=== PATIENT | female | born 1950 | race Caucasian/White ===

== ENCOUNTER 2023-08-19 16:09 | Inpatient (IN) | payer OTHER, SELFPAY ==
[2023-08-19 12:58] VITALS: BP 170/110
[2023-08-19] MEDS: ROXICODONE 5 MG PO (14:08)
--- NOTE | 2023-08-19 14:58 | ED.GENMED ---
History of Present Illness
General
Chief Complaint: Fall
Source: patient
Time Seen by Provider: 08/19/23 13:44
Travel History
Have you had any contact with someone who has COVID-19?: No
Do you have any symptoms of coronavirus? Fever > 100 degrees, chills, cough, shortness of breath, sore throat, loss of taste or smell, muscle aches, or headache?: No
History of Present Illness
History of Present Illness:
72-year-old female with past medical history of hypertension, hyperlipidemia, diabetes insipidus presenting to the emergency department via EMS after she was going to the local [facility] when she was walking into the store when she says her left knee gave
out from underneath her and caused her to fall to the ground, unable to get up so EMS was contacted to bring the patient to the ER. Patient states from her knee down to her lower leg she is having pain with inability to move. She denies any other
extremity related injury, head injury, neck pain or any other concerns. She denies use of anticoagulants. Patient lives on her own in an apartment complex stating there is about 3 stairs at her complex. She notes she was not given anything for
pain and route. She takes daily gabapentin for peripheral neuropathy.
Past History
Past History
ED Past Medical History: Asthma, HTN, Hypercholesterolemia and Other (IBS; Peripheral Neuropathy)
ED Past Surgical History: Cholecystectomy and Orthopedic (B/L Feet Surgery; Right Lumpectomy, Right Wrist Surgery)
Social History
Tobacco: Non-smoker
Alcohol: None
Drug: None
Personal: Single
Living: alone
Employment: Employed
Review of Systems
Review of Systems
All Other Systems: ROS reviewed and negative except as documented in HPI and ROS
Phy Exam
Physical Exam
Physical Exam:
GENERAL: Alert , appears uncomfortable, overweight
head: Normocephalic atraumatic
EYE: clear conjunctiva
NECK: Supple
ENT: o/p clr, mmm.
CARDIAC: Regular rate and rhythm .
LUNGS: Clear breath sounds bilaterally, no acute respiratory distress, no wheezes/rales/rhonchi
NEUROLOGICAL: Alert and oriented
SKIN: Warm and dry, skin intact.
MUSCULOSKELETAL: Left lower extremity: Diffusely tender from the distal femur extending over the patella and into the tib-fib region. Patient is also noting tenderness over the entirety of the ankle but stating there does not appear to be any areas
of increased pain with palpation. I am unable to assess the range of motion of the left leg due to patient's pain. There is an easily palpable pedal and tibial pulse. Cap refills less than 2 seconds and sensation is grossly intact to light touch.
PSYCH: Normal and appropriate interaction.
Scores
Heart Failure Risk
Heart Failure Risk Score: Not Applicable
Heart Score for Chest Pain Patients
STEMI patient?: Not applicable
Withdrawal Assessment of Alcohol
Withdrawal Assessment Completed?: Not applicable
Course
Orders/Labs/Results
Orders:
Orders
08/19/23 13:49
Oxycodone [Roxicodone] 5 mg PO NOW STA
CR Ankle - Left Min 3 Views Urgent
Comment:
Reason For Exam: fall, pain
CR Knee - Left 4 Or More View* Urgent
Comment:
Reason For Exam: fall, pain
CR Leg Tibia/fibula Left 2 Vw Urgent
Comment:
Reason For Exam: fall, pain
08/19/23 14:53
IV Insert/Care/Rem.- Treatment PRN
08/19/23 14:54
CR Femur - Left Min 2 Vw Urgent
Comment:
Reason For Exam: distal femur fracture
08/19/23 14:59
Lower Ext Left wo Contrast CT [CT Lower Ext W/o Iv Cont Lt] Urgent
Comment:
Reason For Exam: distal femur fx
Basic Metabolic Panel Urgent
PTT Urgent
Prothrombin Time Urgent
08/19/23 15:00
Type+Screen Urgent
Complete Blood Count/With Diff Urgent
08/19/23 15:02
HYDROmorphone [Dilaudid] 0.5 mg IV NOW STA
08/19/23 15:40
Admit/Transfer Patient As Directed
Co-Sign Provider:
Level of Care: Inpatient admission
Assign to:: Medical/Surgical
Physician / Group: hosp
Diagnosis: Femur fracture
Reason for Hospitalization: Distal femur fracture
Expected length of stay greater than two midnights?: Yes
ELOS- Estimated Length of Stay in days: 3
I certify the patient meets the requirements for IP care: Yes
08/19/23 15:42
Code Status As Directed
Resuscitation Status: Full Code
08/19/23 15:50
Dextrose 50%-Water [Dextrose 50% Syringe] 12.5 grams IV [id number] PRN
Glucagon [GlucaGen] 1 mg IM PRN PRN
08/19/23 15:51
Urine Creatinine Routine
Urine Osmolality Random [Osmolality, Random Urine] Routine
Urine Sodium Routine
Bedside Glucose Monitoring As Directed
Frequency: AC&HS
Comment: Change to q6h if pt on TPN, tube feeding or not eating
08/19/23 16:30
Insulin Aspart Corrective Low [Novolog Flexpen-Low Resistance] See Protocol SC AC
08/20/23 06:00
Glycohemoglobin (HgbA1c) IN AM
Abnormal Lab Results
08/19/23 08/19/23
14:59 15:00
WBC 15.3 H 10^3/uL
(4.8-10.8)
RBC 3.96 L 10^6/uL
(4.20-5.40)
Hgb 11.6 L g/dL
(12.0-16.0)
Hct 33.0 L %
(37.0-47.0)
Abs Immat Gran (auto) 0.1 H 10^3/uL
(0-0.05)
Absolute Neuts (auto) 12.4 H 10^3/uL
(1.4-6.5)
Absolute Monos (auto) 0.8 H 10^3/uL
(0.1-0.6)
Immature Gran % 0.9 H %
(0-0.5)
Neutrophils % 80.8 H %
(42.2-75.2)
Lymphocytes % 12.4 L %
(20.5-51.1)
Sodium 126 L mmol/L
(135-145)
Chloride 93 L mmol/L
(98-107)
Creatinine 0.5 L mg/dL
(0.6-1.0)
Glucose 175 H mg/dl
(70-99)
08/19/23 15:00
08/19/23 14:59
Vital Signs
Initial and Last Documented VS:
Initial Vital Signs
Temp Pulse Resp BP Pulse Ox
97.2 F 61 16 170/110 96
08/19/23 12:58 08/19/23 12:58 08/19/23 12:58 08/19/23 12:58 08/19/23 12:58
Last Documented Vital Signs
Temp Pulse Resp BP Pulse Ox
97.2 F 61 16 170/110 96
08/19/23 12:58 08/19/23 12:58 08/19/23 12:58 08/19/23 12:58 08/19/23 12:58
MDM/Problems Addressed
Differential Diagnosis Includes:
Femur fracture, meniscal injury, ligamentous injury, tib-fib fracture, ankle fracture
MDM/Problems Addressed:
72-year-old female presenting the emergency department for evaluation of a left lower extremity injury following an accidental fall. Patient is complaining of diffuse pain from the distal femur extending distally into the left lower leg with
inability to range of motion. Will order x-rays. P.o. oxycodone ordered for initial pain relief. Reassessment following
*Radiology
Radiology exam reviewed: preliminary read by ED provider (Distal femur fracture)
*Pulse Oximetry
Patient hypoxic: no
*Critical Care Note
Total Time (30-74mins, 75-104mins- exclusive of procedures): Not Applicable
Patient Management
Discussion with other providers: Hospitalist and Engineering Aid
Escalation/DeEscalation of care consider admission/obs:
X-rays of the knee show a distal femur fracture. I added on x-ray of the entirety of the femur as well as a CT scan at the request of orthopedic surgeon, Dr. Bell. I also ordered the patient IV Dilaudid for further pain control. Hospitalist
team is aware and accepts patient for continued evaluation and treatment.
ED Attending Note
-
Portions of this chart may have been created with voice recognition software.� Occasional wrong word or��sound alike� substitutions may have occurred due to the inherent limitations of voice recognition software.
Discharge Plan
Departure
Patient Disposition: Admit
Date of Disposition: 08/19/23
Time of Disposition: 14:58
Presentation/result/management discussed w/ accepting MD/DO: Hospitalist
Discharge Problem:
Closed fracture of distal end of left femur
Interventions
Interventions:
*Risk Screen - Suicide Last Done: 08/19/23 13:42
*General Assessment Last Done: 08/19/23 13:42
*Neglect/Abuse Screening Last Done: 08/19/23 13:42
*ED COVID-19 Vaccine History Last Done: 08/19/23 12:58
ED-Musculoskeletal Assessment Last Done: 08/19/23 13:42
ED- Neurological Assessment Last Done: 08/19/23 13:42
ED-Skin Assessment Last Done: 08/19/23 13:42
[2023-08-19 15:14] LABS: % Basophils 0.5 % (0-2); % Eosinophils 0.5 % (0-6); % Immature Granulocytes 0.9 % (0-0.5); % Lymphocytes 12.4 % (20.5-51.1); % Monocytes 4.9 % (1.7-9.3); % Neutrophils 80.8 % (42.2-75.2); Absolute Basophils 0.1 10^3/uL (0-0.2); Absolute Eosinophils 0.1 10^3/uL (0-0.7); Absolute Immature Granulocytes 0.1 10^3/uL (0-0.05); Absolute Lymphocytes 1.9 10^3/uL (1.2-3.4); Absolute Monocytes 0.8 10^3/uL (0.1-0.6); Absolute Neutrophils 12.4 10^3/uL (1.4-6.5); Hemoglobin 11.6 g/dL (12.0-16.0); Mean Corp Hgb Conc. 35.2 g/dL (33.0-37.0); Mean Corpuscular Hgb 29.3 pg (27.0-31.0); Mean Corpuscular Volume 83.3 fL (81.0-99.0); Mean Platelet Volume 9.2 fL (7.4-10.4); Nucleated Red Blood Cells % 0 %; Platelet Count 274 10^3/uL (130-400); Red Blood Cell Count 3.96 10^6/uL (4.20-5.40); Red Cell Dist. Width 13.7 % (11.5-14.5); White Blood Cell Count 15.3 10^3/uL (4.8-10.8)
--- NOTE | 2023-08-19 15:21 | HPS.HSE ---
Addendum entered and electronically signed by Walter Huff MD 08/19/23 15:55:
Finally able to get the complete chemistries back in patient's serum sodium is 126 and corrected for hyperglycemia to 128 prior to clearing for proposed operative intervention would like to obtain repeat sodium in a.m. obtain urine sodium and
osmolality patient's hyponatremia seems to be on a chronic basis looking at the medical record however
Original Note:
Family Physician
-
Family Physician: Davonte Wiggins
Chief Complaint
-
Unable to get up after fall at [facility]
History of Present Illness
72-year-old female with a known medical history that includes type type 2 diabetes mellitus with history of neuropathy along with hypertension and asthma. Presents to the ED after EMS personnel called to a local [facility] pharmacy where the patient had
fallen in the entrance way against some carts stating that she accidentally fell she did not have any dizziness chest pain shortness of breath leading to the event she was unable to obtain upright status afterwards due to significant pain and is now
found to have a distal left femur fracture necessitating admission for operative intervention. Other pertinent medical history she has more recently been also been followed by the endocrinology service for an elevated parathyroid hormone level that
was documented last year after initially noted to have hypercalcemia she is presently not being adequately treated for that. She also has a history of hyponatremia her present laboratory profiling is still pending. Patient was actually scheduled
fo pending cataract surgery on 30 August and had preadmission testing this past week which included an EKG but that was reviewed here no lab work was done
Medical History
Past Medical History
Past Medical History: Reports Asthma, GERD, HTN and NIDDM
Additional Past Medical History:
Hyperparathyroidism unclear whether primary or secondary/peripheral neuropathy unclear whether related to diabetes
Past Surgical History: Reports Cholecystectomy and Gynocological
Additional Past Surgical History:
Hysterectomy/lumpectomy
Social History
Tobacco: Non-smoker
Alcohol: None
Drug: None
Personal: Single
Living: Alone
Employment: Employed
Family History
Family History: CAD
Allergies / Home Medications
Allergies reflects when Allergies were last updated in [facility].
Home Medications with original date entered in [facility]
Allergy/Medication List:
Allergies
Allergy/AdvReac Type Severity Reaction Status Date / Time
SAMEER Inhibitors Allergy Unknown Verified 08/19/23 13:01
amoxicillin Allergy Unknown Verified 08/19/23 13:01
cefdinir Allergy Unknown Verified 08/19/23 13:01
neomycin Allergy Unknown Verified 08/19/23 13:01
Home Medications
Fexofenadine Hcl 180 mg PO DAILY 10/22/21
Montelukast Sodium 10 mg PO DAILY 10/22/21
acetaminophen 650 mg tablet,extended release 650 mg PO Q8HPRN PRN pain 10/22/21
albuterol sulfate 90 mcg/actuation aerosol inhaler 2 puff inhalation R Q4HPRN PRN SOB 10/22/21
alprazolam 0.5 mg tablet 0.5 mg PO TID 10/22/21
amlodipine 5 mg tablet 5 mg PO BID 10/22/21
atenolol 25 mg tablet 25 mg PO BID 10/22/21
budesonide-formoterol HFA 160 mcg-4.5 mcg/actuation aerosol inhaler (Symbicort) 2 puff inhalation R BID 10/22/21
cholecalciferol (vitamin D3) 50 mcg (2,000 unit) tablet 2,000 unit PO DAILY 10/22/21
dicyclomine 10 mg capsule 10 mg PO TID 10/22/21
gabapentin 100 mg capsule 200 mg PO TID 10/22/21
meclizine 25 mg tablet 25 mg PO TID PRN Vertigo 10/22/21
metformin 500 mg tablet 500 mg PO BID 10/22/21
omega 5-ocd-hyo-fish oil 300 mg-1,000 mg capsule (Fish Oil) 1 ea PO DAILY 10/22/21
omeprazole 20 mg capsule,delayed release 20 mg PO DAILY 10/22/21
triamcinolone acetonide 55 mcg nasal spray aerosol (Nasacort AQ) 16.5 gm NS DIRECTED 10/22/21
vitamin E 268 mg (400 unit) capsule 400 unit PO DAILY 10/22/21
valsartan 160 mg-hydrochlorothiazide 12.5 mg tablet 1 tab PO BID 08/19/23
Review of Systems
-
History Source: Patient and Transfer Record
A 12 point ROS was completed and negative except as noted: Yes
Constitutional: Reports See HPI
EENT: Reports See HPI
Respiratory: Reports See HPI
Cardiac: Reports See HPI
Abdomen/GI: Reports See HPI
: Reports See HPI
Musculoskeletal: Reports Joint Pain, Joint Swelling and Muscle Pain (Right leg from fall and fracture)
Neurological: Reports Weakness and Numbness
Physical Exam
Vital Signs
Vital Signs
Temp Pulse Resp BP Pulse Ox
97.2 F 61 16 170/110 96
08/19/23 12:58 08/19/23 12:58 08/19/23 12:58 08/19/23 12:58 08/19/23 12:58
Physical Exam
General: Morbidly Obese
HEENT: NormoCephalic
Respiratory: Clear
Cardiac: S1/S2, Regular Rhythm and Irregular Rhythm
GI: Soft
Musculoskeletal: Clubbing, Edema, Left Lower Extremity and Other
Skin: Warm
Neuro: Awake, Alert, Oriented, AO x 3, No Motor Deficits, Nonfocal/grossly intact and Cranial Nerves Intact
Psych: Anxious
Laboratory Results
-
08/19/23 15:00
Data Reviewed
-
Critical Care Time (in minutes): 56
CT Scan: Report Reviewed by me (Still pending read)
Lab Data: Labs Reviewed by me (Chemistries pending)
Impression/Plan
-
IMPRESSION:
72-year-old female with a known medical history that includes type type 2 diabetes mellitus with history of neuropathy along with hypertension and asthma. Presents to the ED after EMS personnel called to a local [facility] pharmacy where the patient had
fallen in the entrance way against some carts stating that she accidentally fell she did not have any dizziness chest pain shortness of breath leading to the event she was unable to obtain upright status afterwards due to significant pain and is now
found to have a distal left femur fracture necessitating admission for operative intervention. Other pertinent medical history she has more recently been also been followed by the endocrinology service for an elevated parathyroid hormone level that
was documented last year after initially noted to have hypercalcemia she is presently not being adequately treated for that. She also has a history of hyponatremia her present laboratory profiling is still pending.
Distal left femur fracture with displacement
-Still unofficial read on x-ray/CT scan pending
-Will need operative intervention
-Keep n.p.o. after midnight
-Narcotic analgesia
-Labs still pending but based on clinical presentation and prior history patient with on revised cardiac risk index has 0.9% low risk for CT or V-fib
-Reviewed this weeks preoperative testing for cataract surgery EKG which was
within normal limits
-Repeat EKG here
-Consult with [facility] orthopedics for presumptive OR intervention tomorrow
Essential hypertension by history
-Continue present management with ARB and hydrochlorothiazide pending lab results again
-Continue amlodipine
Asthma history
-Continue Symbicort
-As needed albuterol
History of hyperparathyroidism
-Prior history of elevated parathyroid hormone and hypercalcemia
-Follows with endocrinology no active treatment presently
Gastroesophageal reflux disease
-Continue on PPI
Type 2 diabetes mellitus
-Hold metformin
-Sliding scale coverage /check glycosylated hemoglobin
Morbid obesity
-Impacts all aspects of care
[2023-08-19 15:25] LABS: INR 1.07
[2023-08-19 15:26] LABS: APTT 26.4 Sec (23.4-35.0)
[2023-08-19 15:35] LABS: Blood Urea Nitrogen 16 mg/dl (7-17); Calcium 9.9 mg/dl (8.4-10.2); Carbon Dioxide 26 mmol/L (22-30); Chloride 93 mmol/L (98-107); Glucose 175 mg/dl (70-99); Potassium 4.4 mmol/L (3.5-5.1); Sodium 126 mmol/L (135-145); eGFR > 60.00
[2023-08-19] MEDS: DILAUDID 0.5 MG IV ×4 (15:37→22:18)
[2023-08-19 17:14] VITALS: BP 147/88
--- NOTE | 2023-08-19 17:30 | PTCARENOTE ---
Pt arrived to 2S on stretcher, slide assist to bed via NSG staff. IVF initiated. Purewick applied. LLE with + edema, pulses palpable b/l. Bed locked and in the lowest position, safety maintained. Oriented to room and call spencer, daughter at bedside.
[2023-08-19 17:31] VITALS: BP 176/69
[2023-08-19 17:47] VITALS: BMI 44.5
[2023-08-19] MEDS: NSS 1000 IV (17:56)
[2023-08-19 18:03] LABS: Glucose - Point of Care 216 mg/dl (70-99)
[2023-08-19] MEDS: NEURONTIN 200 MG PO ×2 (18:23→22:15)
[2023-08-19] MEDS: ORETIC 12.5 MG PO (18:25)
[2023-08-19] MEDS: DIOVAN 160 MG PO (18:25)
[2023-08-19] MEDS: NORVASC 5 MG PO (18:26)
[2023-08-19] MEDS: TENORMIN 12.5 MG PO (18:26)
[2023-08-19] MEDS: NOVOLOG FLEXPEN-LOW RESISTANCE 2 UNITS SC (18:26)
[2023-08-19 18:33] LABS: Osmolality Urine 533 mOsm/kg (300-900)
[2023-08-19 18:43] LABS: Urine Sodium 140 mmol/L (30-90)
[2023-08-19] MEDS: SYMBICORT 160/4.5 MCG INHALER 2 PUFF INH (19:37)
[2023-08-19] MEDS: XANAX 0.25 MG PO (20:13)
[2023-08-19] MEDS: TYLENOL 650 MG PO (20:35)
[2023-08-19 21:39] LABS: Glucose - Point of Care 204 mg/dl (70-99)
[2023-08-19] MEDS: SINGULAIR 10 MG PO (22:16)
[2023-08-19 22:30] VITALS: BP 151/58
[2023-08-20] VITALS (19 sets, daily range): BP systolic 131–202; BP diastolic 55–107
[2023-08-20] MEDS: TYLENOL 650 MG PO ×4 (01:57→20:56)
[2023-08-20] MEDS: DILAUDID 0.5 MG IV ×5 (02:15→23:05)
--- NOTE | 2023-08-20 05:36 | PTCARENOTE ---
Difficulty managing pain overnight with current PRN medications. Around 1999 assessment, pt. states IV Dilaudid 'barely lasts 2 hours' when asked about pain s/p 1751 0.5mg IV Dilaudid administration. House SIGNING TEACHER ordered stat dose of Dilaudid 0.5mg
@2034 and pt. was able to get some rest for a few hours. Later on pt. refusing turns as movement brought her severe pain even with consistent Q4 0.5mg Dilaudid IV and stated the pain was barely tolerable if she just laid still. At 0500 pt. states
pain is starting to return at a 6/10, asking for more pain medication, and is refusing linen change and CHG wipes until she can get pain medication. Dilaudid 0.5mg IV able to be given around 0615, will attempt after administration.
[2023-08-20] MEDS: NSS 1000 IV ×3 (05:56→21:13)
[2023-08-20 06:07] LABS: Hematocrit 30.5 % (37.0-47.0); Hemoglobin 10.5 g/dL (12.0-16.0); Mean Corp Hgb Conc. 34.4 g/dL (33.0-37.0); Mean Corpuscular Hgb 28.7 pg (27.0-31.0); Mean Corpuscular Volume 83.3 fL (81.0-99.0); Mean Platelet Volume 9.6 fL (7.4-10.4); Platelet Count 251 10^3/uL (130-400); Red Blood Cell Count 3.66 10^6/uL (4.20-5.40); Red Cell Dist. Width 13.8 % (11.5-14.5); White Blood Cell Count 10.1 10^3/uL (4.8-10.8)
[2023-08-20 06:26] LABS: Blood Urea Nitrogen 11 mg/dl (7-17); Calcium 9.3 mg/dl (8.4-10.2); Carbon Dioxide 31 mmol/L (22-30); Chloride 94 mmol/L (98-107); Estimated Creatinine Clearance 98 ml/min; Glucose 146 mg/dl (70-99); Potassium 3.5 mmol/L (3.5-5.1); Sodium 127 mmol/L (135-145); eGFR > 60.00
[2023-08-20] MEDS: SYMBICORT 160/4.5 MCG INHALER 2 PUFF INH (07:28)
[2023-08-20 07:32] LABS: Glucose - Point of Care 190 mg/dl (70-99)
[2023-08-20] MEDS: VITAMIN E 400 UNITS PO (07:57)
[2023-08-20] MEDS: NEURONTIN 200 MG PO ×2 (07:57→21:04)
[2023-08-20] MEDS: TENORMIN 12.5 MG PO ×2 (07:58→21:00)
[2023-08-20] MEDS: DIOVAN 160 MG PO ×2 (07:58→21:00)
[2023-08-20] MEDS: PROTONIX 40 MG PO (07:59)
[2023-08-20] MEDS: ORETIC 12.5 MG PO ×2 (08:00→21:00)
[2023-08-20] MEDS: CLARITIN 10 MG PO (08:02)
[2023-08-20] MEDS: XANAX 0.25 MG PO ×2 (08:02→20:55)
[2023-08-20] MEDS: NORVASC 5 MG PO ×2 (08:02→21:00)
[2023-08-20] MEDS: VITAMIN D3 (cholecalciferol) 50 MCG PO (08:02)
--- NOTE | 2023-08-20 08:14 | W.PN.HOSP.TC ---
Today's Communication/Plan
-
Based on revised cardiac risk index has 0.9% low risk for KS or V-fib/cleared for operative
Hyponatremia believe he is in a chronic basis she may also benefit from further hydration
Scale coverage for blood sugars as now off metformin
Assessment / Plan
Assessment / Plan
72-year-old female with a known medical history that includes type type 2 diabetes mellitus with history of neuropathy along with hypertension and asthma.� Presents to the ED after EMS personnel called to a local [facility] pharmacy where the patient had
fallen in the entrance way against some carts stating that she accidentally fell she did not have any dizziness chest pain shortness of breath leading to the event she was unable to obtain upright status afterwards due to significant pain and is now
found to have a distal left femur fracture necessitating admission for operative intervention.� Other pertinent medical history she has more recently been also been followed by the endocrinology service for an elevated parathyroid hormone level that
was documented last year after initially noted to have hypercalcemia she is presently not being adequately treated for that.� She also has a history of hyponatremia her present laboratory profiling is still pending.� Patient was actually scheduled
fo pending cataract surgery on 30 August and had preadmission testing this past week which included an EKG but that was reviewed here no lab work was done
[facility]
[address] [place] [address]
[phone]
Patient Name: KANE TALAMANTES
: 1950
Unit Number: [id number]
Age/Sex: 72/F
Patient
Location: [facility]
Date of Service: 08/19/23
History and Physical
Signed� � � � � � � � � � � � � � � � � � � �
� � � � � � � � � � � � ���~~REPORT ADDENDUM~~
Finally able to get the complete chemistries back in patient's serum sodium is 126 and corrected for hyperglycemia to 128 prior to clearing for proposed operative intervention would like to obtain repeat sodium in a.m. obtain urine sodium and
osmolality patient's hyponatremia seems to be on a chronic basis looking at the medical record however
Addendum Dictated by:�Walter Huff MD
Addendum Dictated Date & Time:�08/19/23
Addendum Co-Signer:�Walter Huff MD
Addendum Co-Sign Date & Time:08/19/231554
Addendum Signed by:�Walter Huff MD
Addendum Signed Date & Time:�08/19/231555
Family Physician
-
Family Physician:� Davonte Wiggins
Chief Complaint
-
Unable to get up after fall at [facility]
History of Present Illness
72-year-old female with a known medical history that includes type type 2 diabetes mellitus with history of neuropathy along with hypertension and asthma.� Presents to the ED after EMS personnel called to a local [facility] pharmacy where the patient had
fallen in the entrance way against some carts stating that she accidentally fell she did not have any dizziness chest pain shortness of breath leading to the event she was unable to obtain upright status afterwards due to significant pain and is now
found to have a distal left femur fracture necessitating admission for operative intervention.� Other pertinent medical history she has more recently been also been followed by the endocrinology service for an elevated parathyroid hormone level that
was documented last year after initially noted to have hypercalcemia she is presently not being adequately treated for that.� She also has a history of hyponatremia her present laboratory profiling is still pending.� Patient was actually scheduled
fo pending cataract surgery on 30 August and had preadmission testing this past week which included an EKG but that was reviewed here no lab work was done
Medical History
Past Medical History
Past Medical History: Reports Asthma, GERD, HTN and NIDDM
Additional Past Medical History:
Hyperparathyroidism unclear whether primary or secondary/peripheral neuropathy unclear whether related to diabetes
Past Surgical History: Reports Cholecystectomy and Gynocological
Additional Past Surgical History:
Hysterectomy/lumpectomy
Social History
Tobacco: Non-smoker
Alcohol: None
Drug: None
Personal: Single
Living: Alone
Employment: Employed
Family History
Family History: CAD
Allergies / Home Medications
Allergies reflects when Allergies were last updated in [employer].
Home Medications with original date entered in [facility]�
Allergy/Medication List:
Allergies
Allergy/AdvReac Type Severity Reaction Status Date / Time
SAMEER Inhibitors Allergy � Unknown Verified 08/19/23 13:01
amoxicillin Allergy � Unknown Verified 08/19/23 13:01
cefdinir Allergy � Unknown Verified 08/19/23 13:01
neomycin Allergy � Unknown Verified 08/19/23 13:01
Home Medications
Fexofenadine Hcl 180 mg PO DAILY 10/22/21
Montelukast Sodium 10 mg PO DAILY 10/22/21
acetaminophen 650 mg tablet,extended release 650 mg PO Q8HPRN PRN pain 10/22/21
albuterol sulfate 90 mcg/actuation aerosol inhaler 2 puff inhalation R Q4HPRN PRN SOB 10/22/21
alprazolam 0.5 mg tablet 0.5 mg PO TID 10/22/21
amlodipine 5 mg tablet 5 mg PO BID 10/22/21
atenolol 25 mg tablet 25 mg PO BID 10/22/21
budesonide-formoterol HFA 160 mcg-4.5 mcg/actuation aerosol inhaler (Symbicort) 2 puff inhalation R BID 10/22/21
cholecalciferol (vitamin D3) 50 mcg (2,000 unit) tablet 2,000 unit PO DAILY 10/22/21
dicyclomine 10 mg capsule 10 mg PO TID 10/22/21
gabapentin 100 mg capsule 200 mg PO TID 10/22/21
meclizine 25 mg tablet 25 mg PO TID PRN Vertigo 10/22/21
metformin 500 mg tablet 500 mg PO BID 10/22/21
omega 1-qvx-vin-fish oil 300 mg-1,000 mg capsule (Fish Oil) 1 ea PO DAILY 10/22/21
omeprazole 20 mg capsule,delayed release 20 mg PO DAILY 10/22/21
triamcinolone acetonide 55 mcg nasal spray aerosol (Nasacort AQ) 16.5 gm NS DIRECTED 10/22/21
vitamin E 268 mg (400 unit) capsule 400 unit PO DAILY 10/22/21
valsartan 160 mg-hydrochlorothiazide 12.5 mg tablet 1 tab PO BID 08/19/23
Review of Systems
-
History Source: Patient and Transfer Record
A 12 point ROS was completed and negative except as noted: Yes
Constitutional: Reports See HPI
EENT: Reports See HPI
Respiratory: Reports See HPI
Cardiac: Reports See HPI
Abdomen/GI: Reports See HPI
: Reports See HPI
Musculoskeletal: Reports Joint Pain, Joint Swelling and Muscle Pain (Right leg from fall and fracture)
Neurological: Reports Weakness and Numbness
Physical Exam
Vital Signs
Vital Signs
Temp Pulse Resp BP Pulse Ox
�97.2 F �61 �16 �170/110 �96
�08/19/23 12:58 �08/19/23 12:58 �08/19/23 12:58 �08/19/23 12:58 �08/19/23 12:58
Physical Exam
General: Morbidly Obese
HEENT: NormoCephalic
Respiratory: Clear
Cardiac: S1/S2, Regular Rhythm and Irregular Rhythm
GI: Soft
Musculoskeletal: Clubbing, Edema, Left Lower Extremity and Other
Skin: Warm
Neuro: Awake, Alert, Oriented, AO x 3, No Motor Deficits, Nonfocal/grossly intact and Cranial Nerves Intact
Psych: Anxious
Laboratory Results
-
08/19/23 15:00�
Data Reviewed
-
Critical Care Time (in minutes): 56
CT Scan: Report Reviewed by me (Still pending read)
Lab Data: Labs Reviewed by me (Chemistries pending)
Impression/Plan
-
IMPRESSION:
72-year-old female with a known medical history that includes type type 2 diabetes mellitus with history of neuropathy along with hypertension and asthma.� Presents to the ED after EMS personnel called to a local [facility] pharmacy where the patient had
fallen in the entrance way against some carts stating that she accidentally fell she did not have any dizziness chest pain shortness of breath leading to the event she was unable to obtain upright status afterwards due to significant pain and is now
found to have a distal left femur fracture necessitating admission for operative intervention.� Other pertinent medical history she has more recently been also been followed by the endocrinology service for an elevated parathyroid hormone level that
was documented last year after initially noted to have hypercalcemia she is presently not being adequately treated for that.� She also has a history of hyponatremia her present laboratory profiling is still pending.
Distal left femur fracture with displacement
-Seen on CT and x-ray
-Will need operative intervention
-Keep n.p.o. after midnight
-Narcotic analgesia
-�clinical presentation and prior history patient with on revised cardiac risk index has 0.9% low risk for KS or V-fib/cleared for operative intervention
-Reviewed this weeks preoperative testing for cataract surgery EKG which was
�within normal limits
-Repeat EKG here
-Consult with [facility] orthopedics for presumptive OR intervention tomorrow
Essential hypertension by history
-Continue present management with ARB and hydrochlorothiazide pending lab results again
-Continue amlodipine
Hyponatremia
-Review of medical records shows in a chronic basis
-Unclear etiology
-Patient is diabetic and after correction of sodium based on blood sugar today's sodium of 129
-No contraindication for operative intervention later today
-Fractional excretion of sodium is less than 1%/so we will continue cautious hydration
Asthma history/no signs of exacerbation
-Continue Symbicort
-As needed albuterol
History of hyperparathyroidism
-Prior history of elevated parathyroid hormone and hypercalcemia
-Follows with endocrinology no active treatment presently
Gastroesophageal reflux disease
-Continue on PPI
Type 2 diabetes mellitus
-Hold metformin
-Sliding scale coverage /check glycosylated hemoglobin
Morbid obesity
-Impacts all aspects of care
Anticipated Discharge: 24 - 48 hours
Subjective/Interval History
-
Date of Service: August 20, 2023
And some degree of discomfort from pain referred to her left leg partial relief with Dilaudid restless night.
Objective Data
-
Labs:
Laboratory Results
08/20/23
04:51
WBC 10.1
Hgb 10.5 L
Hct 30.5 L
Plt Count 251
Sodium 127 L
Potassium 3.5
Chloride 94 L
Carbon Dioxide 31 H
BUN 11
Creatinine 0.4 L
Glucose 146 H
Calcium 9.3
Vital Signs:
Vital Signs
Temp Pulse Resp BP Pulse Ox
98.6 F 63 20 183/83 96
08/20/23 07:51 08/20/23 07:51 08/20/23 07:51 08/20/23 07:51 08/20/23 07:51
I&O
08/19/23 08/20/23 08/21/23
06:59 06:59 06:59
Intake Total 400 / 400
Output Total 1350 / 1350
Balance -950 / -950
Review of Systems
-
History Source: Patient
Constitutional: Reports No Symptoms, No Appetite and Fatigue
EENT: Reports No Symptoms Reported
Respiratory: Reports No Symptoms
Cardiac: Reports No Symptoms
Musculoskeletal: Reports Muscle Pain, Muscle Stiffness and Arthralgias
Psych: Reports Anxious
Physical Exam
-
General: Well Developed
HEENT: Normocephalic
Respiratory: Clear to Auscultation
Cardiac: Regular Rhythm
GI: Soft and Nontender
Musculoskeletal: Edema, Left Lower Extrem
Neuro: Awake
Psych: Anxious
Data Reviewed
-
Total Time Spent with Patient (in minutes): 39
CT Scan: Report Reviewed by me (CT scan as x-ray shows a comminuted impacted distal femur fracture)
Labs: Labs Reviewed by me (Sodium up to 127 and corrected for hyperglycemia glycemia up to 129)
[2023-08-20] MEDS: NOVOLOG FLEXPEN-LOW RESISTANCE SC ×2 (08:20→18:30)
--- NOTE | 2023-08-20 08:39 | CON.ORTHO ---
Consultation
-
Date/Time Consultation Requested: Sep 04
Date/Time Consultation Performed: Sep 04
Requesting Provider: Daria
Performing Provider: [facility]
Reason for Consultation: Left Distal Femur Fx
Consultation - Orthopedics
History
Dictation#[id number]
Asked to see this pleasant 72-year-old obese white female with a PMH of Asthma, HTN, DM2, Hypercholesterolemia, IB, Peripheral LE Neuropathy from multiple foot surgeries who unfortunately fell yesterday while out at [facility]. She could not get to her
feet due to intractable pain and deformity. EMS was summoned and she was transported to where plain radiographs revealed a comminuted and impacted left distal femur fracture. She denies any previous injuries or issues to the thigh or left knee.
She has been admitted to the hospitalist service and we have been consulted for the consideration of surgical correction. CT scan was requested to correlate radiographs. She was also found to be slightly hyponatremic but tells me she follows
along with endocrinology. Per Dr. Huff this looks to be a chronic issue
Allergies / Home Medications
Allergy/AdvReac Type Severity Reaction Status Date / Time
SAMEER Inhibitors Allergy Unknown Verified 08/19/23 13:01
amoxicillin Allergy Unknown Verified 08/19/23 13:01
cefdinir Allergy Unknown Verified 08/19/23 13:01
neomycin Allergy Unknown Verified 08/19/23 13:01
Medication Instructions Recorded
Fexofenadine Hcl 180 mg PO DAILY Allergies 10/22/21
Montelukast Sodium 10 mg PO HS asthma 10/22/21
acetaminophen 650 mg 650 mg PO Q8HPRN PRN pain 10/22/21
tablet,extended release
albuterol sulfate 90 mcg/actuation 2 puff inhalation R Q4HPRN PRN SOB 10/22/21
aerosol inhaler
alprazolam 0.5 mg tablet 0.5 mg PO TID Mental Health/Anxiety 10/22/21
amlodipine 5 mg tablet 5 mg PO BID Blood Pressure 04/13/22
atenolol 25 mg tablet 12.5 mg PO BID Blood Pressure 10/22/21
budesonide-formoterol HFA 160 2 puff inhalation R BID 10/22/21
mcg-4.5 mcg/actuation aerosol Lung/Breathing Issues
inhaler (Symbicort)
cholecalciferol (vitamin D3) 50 2,000 unit PO DAILY Supplement 10/22/21
mcg (2,000 unit) tablet
dicyclomine 10 mg capsule 10 mg PO TID PRN stomach pains 10/22/21
gabapentin 100 mg capsule 200 mg PO TID Neurological 10/22/21
Condition
meclizine 25 mg tablet 25 mg PO TID PRN Vertigo 10/22/21
metformin 500 mg tablet 500 mg PO BID Diabetes 10/22/21
omega 3-jhb-[id number]-fish oil 300 1 ea PO DAILY High Cholesterol 10/22/21
mg-1,000 mg capsule (Fish Oil)
omeprazole 20 mg capsule,delayed 20 mg PO DAILY Gastrointestinal 10/22/21
release Issue
triamcinolone acetonide 55 mcg 16.5 gm NS DAILYPRN PRN congestion 10/22/21
nasal spray aerosol (Nasacort AQ)
vitamin E 268 mg (400 unit) capsule 400 unit PO DAILY Supplement 10/22/21
valsartan 160 1 tab PO BID Blood Pressure 08/19/23
mg-hydrochlorothiazide 12.5 mg
tablet
Vital Signs / Lab Results
Temp Pulse Resp BP Pulse Ox
98.6 F 63 20 183/83 96
08/20/23 07:51 08/20/23 07:51 08/20/23 07:51 08/20/23 07:51 08/20/23 07:51
08/20/23 04:51
08/20/23 04:51
Assessment / Plan
PE: Afeb. Hgb 10.5. Na 127 this AM. currently at bedrest. LL are equal. Expected edema about the distal thigh. Significant pain to palpation. Deferred range of motion due to known fracture. hip and ankle nontender. diminished sensation
distally due to peripheral neuropathy
Xrays: comminuted impacted LEFT distal femur fracture
CT: [facility]
Impression: LEFT Distal femur Fracture
Plan: At length bedside discussion with the patient yields her understanding to the nature of her LEFT femur fracture. Nonsurgical and surgical options were discussed, including the RBA's of each. obviously it would be strongly recommended to
proceed with surgical correction. After accepting all the proposed risks of surgery she has agreed to proceed. We did briefly discuss the postop and rehab course, for which we will appreciate case management's assistance. it appears as though she
will be cleared for surgery by Dr. Huff, as her hyponatremia appears to be chronic. We will await the official word. Based on CT scan it looks like a retrograde nailing of her distal femur fracture will be recommended. Tentative plan for
surgery will be around [address] Bell, based on his and the OR's availability. Operative site marked as the LEFT knee/distal thigh. surgical and blood consents have been signed and placed on the patient's chart. patient is
and will remain NPO. T&S have been completed. based on the decision for a retrograde nail we do not expect a significant amount of blood loss. If surgery needs to be converted to open plate and screw fixation we will contact the blood bank to
assure product is available, as her Hgb currently sits at 10.5. [employer]X and irrigation products are on-call. we will continue to follow now and throughout her stay
[2023-08-20 11:06] LABS: Glycohemoglobin (HgbA1c) 7.6 % (4.0-5.6)
[2023-08-20 12:13] LABS: Glucose - Point of Care 177 mg/dl (70-99)
[2023-08-20] MEDS: NOVOLOG FLEXPEN-LOW RESISTANCE 1 UNITS SC (12:16)
--- NOTE | 2023-08-20 14:14 | CM ---
Reviewed the chart notes and spoke with the patient and her daughter at the bedside. The patient resides alone in a second floor apartment with a flight of steps to enter. The patient reports on DME is a cane. The patient reports no VN or SNF in
the past. The patient confirmed her pharmacy of choice is the [facility] [address] [place]. The patient and daughter provided with list of area SNFs. Patient will most likely need SNF/rehab prior to transitioning back to home. CM continues to be
available to patient/family and is monitoring medical plan for needs at discharge.
Plan: Discharge to SNF/rehab when medically stable. Precert will be required.
[2023-08-20] MEDS: ANCEF 10 IV (16:38)
[2023-08-20 18:30] LABS: Glucose - Point of Care 194 mg/dl (70-99)
[2023-08-20] MEDS: SUBLIMAZE 50 MCG IV (18:49)
[2023-08-20] MEDS: SUBLIMAZE 25 MCG IV ×3 (19:25→20:14)
[2023-08-20] MEDS: APRESOLINE 5 MG IV ×3 (19:31→20:04)
[2023-08-20] MEDS: SYMBICORT 160/4.5 MCG INHALER INH (19:45)
[2023-08-20] MEDS: NEURONTIN PO (20:47)
[2023-08-20] MEDS: COLACE 100 MG PO (20:57)
[2023-08-20] MEDS: ASPIRIN 325 MG PO (20:57)
[2023-08-20] MEDS: SENOKOT 17.1999999999999993 MG PO (20:58)
[2023-08-20] MEDS: ROXICODONE 10 MG PO (20:59)
[2023-08-20] MEDS: SINGULAIR 10 MG PO (21:04)
--- NOTE | 2023-08-20 21:30 | PTCARENOTE ---
Pt. arriving from PACU around 2054. Pt. drowsy, even and unlabored breathing on 2L NC, VSS, and c/o 10/10 L knee pain. Visibly uncomfortable, crying, shaking, and pleading for pain meds. Oxycodone 10mg PO given along with scheduled meds. Pt. stating
she's upset with her surgery and amount of post op pain as she was under the assumption she was to get a nerve block intraop and told in the recovery room that it wasn't done. Emotional support given and pt. feeling calmer shortly after her
medications and able to sleep. Will continue to monitor.
[2023-08-20] MEDS: ANCEF 5 IV (23:05)
[2023-08-20] MEDS: NOVOLOG FLEXPEN-LOW RESISTANCE 2 UNITS SC (23:14)
[2023-08-20 23:15] LABS: Glucose - Point of Care 234 mg/dl (70-99)
[2023-08-21] MEDS: TYLENOL 650 MG PO ×2 (00:59→05:51)
[2023-08-21] MEDS: ROXICODONE 10 MG PO ×5 (01:00→22:33)
[2023-08-21] MEDS: NSS IV ×3 (04:44→13:07)
[2023-08-21 06:07] LABS: Hematocrit 29.4 % (37.0-47.0); Hemoglobin 10.3 g/dL (12.0-16.0); Mean Corpuscular Hgb 29.4 pg (27.0-31.0); Mean Platelet Volume 9.3 fL (7.4-10.4); Platelet Count 218 10^3/uL (130-400); Red Cell Dist. Width 13.9 % (11.5-14.5); White Blood Cell Count 12.1 10^3/uL (4.8-10.8)
[2023-08-21] MEDS: NOVOLOG FLEXPEN-LOW RESISTANCE SC (06:08)
[2023-08-21 06:39] LABS: Blood Urea Nitrogen 8 mg/dl (7-17); Calcium 9.5 mg/dl (8.4-10.2); Carbon Dioxide 30 mmol/L (22-30); Chloride 96 mmol/L (98-107); Estimated Creatinine Clearance 98 ml/min; Glucose 197 mg/dl (70-99); Potassium 4.1 mmol/L (3.5-5.1); Sodium 130 mmol/L (135-145); eGFR > 60.00
[2023-08-21 07:16] LABS: Glucose - Point of Care 195 mg/dl (70-99)
[2023-08-21 07:22] VITALS: BP 102/46
--- NOTE | 2023-08-21 07:48 | W.PN.HOSP.TC ---
Today's Communication/Plan
-
Activity as per orthopedics as patient is in the left leg immobilizer
DVT prophylaxis with full dose aspirin
Restart metformin to treat diabetes
Continue to monitor sodium and fluid restriction continue
Hemodynamically stable. Day 1
Assessment / Plan
Assessment / Plan
72-year-old female with a known medical history that includes type type 2 diabetes mellitus with history of neuropathy along with hypertension and asthma.� Presents to the ED after EMS personnel called to a local [facility] pharmacy where the patient had
fallen in the entrance way against some carts stating that she accidentally fell she did not have any dizziness chest pain shortness of breath leading to the event she was unable to obtain upright status afterwards due to significant pain and is now
found to have a distal left femur fracture necessitating admission for operative intervention.� Other pertinent medical history she has more recently been also been followed by the endocrinology service for an elevated parathyroid hormone level that
was documented last year after initially noted to have hypercalcemia she is presently not being adequately treated for that.� She also has a history of hyponatremia her present laboratory profiling is still pending.� Patient was actually scheduled
fo pending cataract surgery on 30 August and had preadmission testing this past week which included an EKG but that was reviewed here no lab work was done
[facility]
[address] [place] [address]
[phone]
Patient Name: KANE TALAMANTES
: 1950
Unit Number: [id number]
Age/Sex: 72/F
Patient
Location: [facility]
Date of Service: 08/19/23
History and Physical
Signed� � � � � � � � � � � � � � � � � � � �
� � � � � � � � � � � � ���~~REPORT ADDENDUM~~
Finally able to get the complete chemistries back in patient's serum sodium is 126 and corrected for hyperglycemia to 128 prior to clearing for proposed operative intervention would like to obtain repeat sodium in a.m. obtain urine sodium and
osmolality patient's hyponatremia seems to be on a chronic basis looking at the medical record however
Addendum Dictated by:�Walter Huff MD
Addendum Dictated Date & Time:�08/19/23
Addendum Co-Signer:�Walter Huff MD
Addendum Co-Sign Date & Time:08/19/231554
Addendum Signed by:�Walter Huff MD
Addendum Signed Date & Time:�08/19/231555
Family Physician
-
Family Physician:� Davonte Wiggins
Chief Complaint
-
Unable to get up after fall at [facility]
History of Present Illness
72-year-old female with a known medical history that includes type type 2 diabetes mellitus with history of neuropathy along with hypertension and asthma.� Presents to the ED after EMS personnel called to a local [facility] pharmacy where the patient had
fallen in the entrance way against some carts stating that she accidentally fell she did not have any dizziness chest pain shortness of breath leading to the event she was unable to obtain upright status afterwards due to significant pain and is now
found to have a distal left femur fracture necessitating admission for operative intervention.� Other pertinent medical history she has more recently been also been followed by the endocrinology service for an elevated parathyroid hormone level that
was documented last year after initially noted to have hypercalcemia she is presently not being adequately treated for that.� She also has a history of hyponatremia her present laboratory profiling is still pending.� Patient was actually scheduled
fo pending cataract surgery on 30 August and had preadmission testing this past week which included an EKG but that was reviewed here no lab work was done
Medical History
Past Medical History
Past Medical History: Reports Asthma, GERD, HTN and NIDDM
Additional Past Medical History:
Hyperparathyroidism unclear whether primary or secondary/peripheral neuropathy unclear whether related to diabetes
Past Surgical History: Reports Cholecystectomy and Gynocological
Additional Past Surgical History:
Hysterectomy/lumpectomy
Social History
Tobacco: Non-smoker
Alcohol: None
Drug: None
Personal: Single
Living: Alone
Employment: Employed
Family History
Family History: CAD
Allergies / Home Medications
Allergies reflects when Allergies were last updated in [email or web address].
Home Medications with original date entered in [email or web address]�
Allergy/Medication List:
Allergies
Allergy/AdvReac Type Severity Reaction Status Date / Time
SAMEER Inhibitors Allergy � Unknown Verified 08/19/23 13:01
amoxicillin Allergy � Unknown Verified 08/19/23 13:01
cefdinir Allergy � Unknown Verified 08/19/23 13:01
neomycin Allergy � Unknown Verified 08/19/23 13:01
Home Medications
Fexofenadine Hcl 180 mg PO DAILY 10/22/21
Montelukast Sodium 10 mg PO DAILY 10/22/21
acetaminophen 650 mg tablet,extended release 650 mg PO Q8HPRN PRN pain 10/22/21
albuterol sulfate 90 mcg/actuation aerosol inhaler 2 puff inhalation R Q4HPRN PRN SOB 10/22/21
alprazolam 0.5 mg tablet 0.5 mg PO TID 10/22/21
amlodipine 5 mg tablet 5 mg PO BID 10/22/21
atenolol 25 mg tablet 25 mg PO BID 10/22/21
budesonide-formoterol HFA 160 mcg-4.5 mcg/actuation aerosol inhaler (Symbicort) 2 puff inhalation R BID 10/22/21
cholecalciferol (vitamin D3) 50 mcg (2,000 unit) tablet 2,000 unit PO DAILY 10/22/21
dicyclomine 10 mg capsule 10 mg PO TID 10/22/21
gabapentin 100 mg capsule 200 mg PO TID 10/22/21
meclizine 25 mg tablet 25 mg PO TID PRN Vertigo 10/22/21
metformin 500 mg tablet 500 mg PO BID 10/22/21
omega 7-nca-nmb-fish oil 300 mg-1,000 mg capsule (Fish Oil) 1 ea PO DAILY 10/22/21
omeprazole 20 mg capsule,delayed release 20 mg PO DAILY 10/22/21
triamcinolone acetonide 55 mcg nasal spray aerosol (Nasacort AQ) 16.5 gm NS DIRECTED 10/22/21
vitamin E 268 mg (400 unit) capsule 400 unit PO DAILY 10/22/21
valsartan 160 mg-hydrochlorothiazide 12.5 mg tablet 1 tab PO BID 08/19/23
Review of Systems
-
History Source: Patient and Transfer Record
A 12 point ROS was completed and negative except as noted: Yes
Constitutional: Reports See HPI
EENT: Reports See HPI
Respiratory: Reports See HPI
Cardiac: Reports See HPI
Abdomen/GI: Reports See HPI
: Reports See HPI
Musculoskeletal: Reports Joint Pain, Joint Swelling and Muscle Pain (Right leg from fall and fracture)
Neurological: Reports Weakness and Numbness
Physical Exam
Vital Signs
Vital Signs
Temp Pulse Resp BP Pulse Ox
�97.2 F �61 �16 �170/110 �96
�08/19/23 12:58 �08/19/23 12:58 �08/19/23 12:58 �08/19/23 12:58 �08/19/23 12:58
Physical Exam
General: Morbidly Obese
HEENT: NormoCephalic
Respiratory: Clear
Cardiac: S1/S2, Regular Rhythm and Irregular Rhythm
GI: Soft
Musculoskeletal: Clubbing, Edema, Left Lower Extremity and Other
Skin: Warm
Neuro: Awake, Alert, Oriented, AO x 3, No Motor Deficits, Nonfocal/grossly intact and Cranial Nerves Intact
Psych: Anxious
Laboratory Results
-
08/19/23 15:00�
Data Reviewed
-
Critical Care Time (in minutes): 56
CT Scan: Report Reviewed by me (Still pending read)
Lab Data: Labs Reviewed by me (Chemistries pending)
Impression/Plan
-
IMPRESSION:
72-year-old female with a known medical history that includes type type 2 diabetes mellitus with history of neuropathy along with hypertension and asthma.� Presents to the ED after EMS personnel called to a local [facility] pharmacy where the patient had
fallen in the entrance way against some carts stating that she accidentally fell she did not have any dizziness chest pain shortness of breath leading to the event she was unable to obtain upright status afterwards due to significant pain and is now
found to have a distal left femur fracture necessitating admission for operative intervention.� Other pertinent medical history she has more recently been also been followed by the endocrinology service for an elevated parathyroid hormone level that
was documented last year after initially noted to have hypercalcemia she is presently not being adequately treated for that.� She also has a history of hyponatremia her present laboratory profiling is still pending.
Distal left femur fracture with displacement
-Seen on CT and x-ray
-Will need operative intervention
-Keep n.p.o. after midnight
-Narcotic analgesia
-�clinical presentation and prior history patient with on revised cardiac risk index has 0.9% low risk for AL or V-fib/cleared for operative intervention
-Reviewed this weeks preoperative testing for cataract surgery EKG which was
�within normal limits
-Repeat EKG here
-Consult with [facility] orthopedics for presumptive OR intervention tomorrow
-Had retrograde nail inserted for fixation on August 20 in left leg immobilizer/activity as per orthopedics
-DVT prophylaxis as per orthopedics with aspirin 325 mg daily
Essential hypertension by history
-Continue present management with ARB and hydrochlorothiazide p
-Continue amlodipine/valsartan
Hyponatremia
-Review of medical records shows in a chronic basis
-Unclear etiology
-Patient is diabetic and after correction of sodium based on blood sugar today's sodium of 129
-No contraindication for operative intervention later today
-Fractional excretion of sodium is less than 1%/so we will continue cautious hydration
-Sodium. With correction for hyperglycemia 132
Asthma history/no signs of exacerbation
-Continue Symbicort
-As needed albuterol
History of hyperparathyroidism
-Prior history of elevated parathyroid hormone and hypercalcemia
-Follows with endocrinology no active treatment presently
Gastroesophageal reflux disease
-Continue on PPI
Type 2 diabetes mellitus
-Hold metformin perioperatively will be restarted postop
-Sliding scale coverage /check glycosylated hemoglobin
Morbid obesity
-Impacts all aspects of care
Anticipated Discharge: 24 - 48 hours
Subjective/Interval History
-
Date of Service: August 21, 2023
Mildly slurred from narcotics overnight did get some rest after initial. Immediately postop where she had significant pain on 2 L flow of oxygen
Objective Data
-
Labs:
Laboratory Results
08/21/23
05:48
WBC 12.1 H
Hgb 10.3 L
Hct 29.4 L
Plt Count 218
Sodium 130 L
Potassium 4.1
Chloride 96 L
Carbon Dioxide 30
BUN 8
Creatinine 0.4 L
Glucose 197 H
Calcium 9.5
Vital Signs:
Vital Signs
Temp Pulse Resp BP Pulse Ox
98.6 F 76 18 147/67 95
08/20/23 23:32 08/20/23 23:32 08/20/23 23:32 08/20/23 23:32 08/20/23 23:32
I&O
02/09/24 02/10/24 02/11/24
06:59 06:59 06:59
Intake Total 400 / 400 1570 / 1570
Output Total 1350 / 1350 2750 / 2750
Balance -950 / -950 -1180 / -1180
Review of Systems
-
History Source: Patient
Constitutional: Reports No Symptoms
EENT: Reports No Symptoms Reported
Respiratory: Reports No Symptoms
Cardiac: Reports No Symptoms
Abdomen/GI: Reports No Symptoms
Genitourinary: Reports Difficulty Voiding
Musculoskeletal: Reports Joint Pain, Joint Swelling, Muscle Pain and Muscle Stiffness
Physical Exam
-
General: Morbidly Obese
HEENT: Normocephalic
Respiratory: Clear to Auscultation
GI: Soft, Nontender and Nondistended
Musculoskeletal: Edema, Left Lower Extrem (In immobilizer)
Neuro: Awake, Alert, Oriented and AO x 3
Psych: Anxious
Data Reviewed
-
Total Time Spent with Patient (in minutes): 56
Labs: Labs Reviewed by me (Hemoglobin 10.3 and stable compared to preop/white count mildly elevated 12,000/sodium corrected to hyperglycemia is 132)
[2023-08-21] MEDS: SYMBICORT 160/4.5 MCG INHALER 2 PUFF INH ×2 (07:53→20:16)
[2023-08-21] MEDS: NOVOLOG FLEXPEN-LOW RESISTANCE 1 UNITS SC (08:35)
[2023-08-21] MEDS: ANCEF 5 IV (08:36)
[2023-08-21] MEDS: ORETIC 12.5 MG PO ×2 (08:37→21:12)
[2023-08-21] MEDS: DIOVAN 160 MG PO ×2 (08:37→21:12)
[2023-08-21] MEDS: TENORMIN PO (08:38)
[2023-08-21] MEDS: VITAMIN E 400 UNITS PO (08:39)
[2023-08-21] MEDS: GLUCOPHAGE 500 MG PO ×2 (08:39→17:47)
[2023-08-21] MEDS: PROTONIX 40 MG PO (08:39)
[2023-08-21] MEDS: COLACE 100 MG PO ×2 (08:40→21:12)
[2023-08-21] MEDS: ASPIRIN 325 MG PO (08:40)
[2023-08-21] MEDS: NEURONTIN 200 MG PO ×3 (08:40→21:10)
[2023-08-21] MEDS: NORVASC PO (08:41)
[2023-08-21] MEDS: SENOKOT 17.1999999999999993 MG PO ×2 (08:41→21:11)
[2023-08-21] MEDS: XANAX 0.25 MG PO ×2 (08:41→21:10)
[2023-08-21] MEDS: VITAMIN D3 (cholecalciferol) PO (08:42)
[2023-08-21] MEDS: CLARITIN PO (08:46)
--- NOTE | 2023-08-21 08:56 | W.PN.ORTHO ---
Today's Communication / Plan
-
PT/OT
Knee immobilizer at all times
Nonweightbearing left lower extremity
Ice with elevation to control swelling and pain
Aspirin for DVT prophylactics along with mechanical devices
Return to office 1 month for x-ray-skin clips should be removed 2 weeks postop
Assessment
.
Distal Motor Intact: Yes
Dressing:
Clean, dry and intact.
Plan
.
Surgery / Date: Retrograde IM nail L distal femur 08/20/23 Ritting
DVT Prophylaxis: Aspirin
Activity:
Out of bed.
PT/OT
Discharge Plan: SNF
Subjective
.
.:
Patient resting comfortably.
Vital Signs and Labs
.
Vital Signs and Labs:
Lab Results
08/21/23 05:48
08/21/23 05:48
Temp Pulse Resp BP Pulse Ox
98.0 F 71 16 102/46 99
08/21/23 07:22 08/21/23 07:56 08/21/23 07:56 08/21/23 07:22 08/21/23 07:56
PT 14.0 Sec (11.4-14.6) 08/19/23 14:59
INR 1.07 08/19/23 14:59
[2023-08-21] MEDS: DILAUDID 0.5 MG IV (09:00)
[2023-08-21 10:38] VITALS: BP 146/56; BP 148/62; PULSE 74
[2023-08-21 11:40] LABS: Glucose - Point of Care 304 mg/dl (70-99)
[2023-08-21 12:02] VITALS: BP 128/49
[2023-08-21 13:18] LABS: Glucose - Point of Care 223 mg/dl (70-99)
[2023-08-21] MEDS: NOVOLOG FLEXPEN-LOW RESISTANCE 2 UNITS SC ×2 (13:21→17:46)
[2023-08-21 15:54] VITALS: BP 122/67
[2023-08-21 16:37] LABS: Glucose - Point of Care 200 mg/dl (70-99)
[2023-08-21 19:05] VITALS: BP 146/55
[2023-08-21] MEDS: SINGULAIR 10 MG PO (21:11)
[2023-08-21] MEDS: NORVASC 5 MG PO (21:12)
[2023-08-21] MEDS: TENORMIN 12.5 MG PO (21:33)
[2023-08-21 21:51] LABS: Glucose - Point of Care 173 mg/dl (70-99)
[2023-08-21] MEDS: DESENEX/MITRAZOL/ZEASORB 1 APPLIC TOPICAL (22:32)
[2023-08-21 23:00] VITALS: BP 146/51
--- NOTE | 2023-08-22 01:42 | PTCARENOTE ---
Labs and IVF reviewed with EBONY, covering house. OK to remain off. Monitor labs in am.
[2023-08-22] MEDS: NSS IV (01:44)
[2023-08-22] MEDS: ROXICODONE 10 MG PO ×3 (04:05→15:15)
[2023-08-22 06:23] LABS: Hematocrit 28.1 % (37.0-47.0); Hemoglobin 9.6 g/dL (12.0-16.0); Mean Corp Hgb Conc. 34.2 g/dL (33.0-37.0); Mean Corpuscular Hgb 29.4 pg (27.0-31.0); Mean Corpuscular Volume 86.2 fL (81.0-99.0); Mean Platelet Volume 9.6 fL (7.4-10.4); Platelet Count 237 10^3/uL (130-400); Red Blood Cell Count 3.26 10^6/uL (4.20-5.40); Red Cell Dist. Width 13.7 % (11.5-14.5); White Blood Cell Count 12.7 10^3/uL (4.8-10.8)
[2023-08-22 06:37] LABS: Blood Urea Nitrogen 13 mg/dl (7-17); Calcium 9.6 mg/dl (8.4-10.2); Carbon Dioxide 30 mmol/L (22-30); Chloride 93 mmol/L (98-107); Estimated Creatinine Clearance 98 ml/min; Glucose 156 mg/dl (70-99); Potassium 3.6 mmol/L (3.5-5.1); Sodium 129 mmol/L (135-145); eGFR > 60.00
[2023-08-22 07:24] VITALS: BP 103/52
--- NOTE | 2023-08-22 07:51 | W.PN.HOSP.TC ---
Today's Communication/Plan
-
Continue to monitor lites and H&H which remained stable
Hyponatremia stable and would not address further other than with fluid restriction and making sure to keep blood sugar controlled restarted metformin
Consideration for adjusting hydrochlorothiazide but also takes it for her history of hyperparathyroidism and follows with endocrinology
She will need an extended rehab stay as she remains nonweightbearing pain seems to be adequately controlled presently with oxycodone dosing for constipation
DVT prophylaxis with full dose aspirin as per orthopedics
Assessment / Plan
Assessment / Plan
7
Impression/Plan
-
IMPRESSION:
72-year-old female with a known medical history that includes type type 2 diabetes mellitus with history of neuropathy along with hypertension and asthma.� Presents to the ED after EMS personnel called to a local [facility] pharmacy where the patient had
fallen in the entrance way against some carts stating that she accidentally fell she did not have any dizziness chest pain shortness of breath leading to the event she was unable to obtain upright status afterwards due to significant pain and is now
found to have a distal left femur fracture necessitating admission for operative intervention.� Other pertinent medical history she has more recently been also been followed by the endocrinology service for an elevated parathyroid hormone level that
was documented last year after initially noted to have hypercalcemia she is presently not being adequately treated for that.� She also has a history of hyponatremia her present laboratory profiling is still pending.
Distal left femur fracture with displacement
-Seen on CT and x-ray
-Will need operative intervention
-Keep n.p.o. after midnight
-Narcotic analgesia
-�clinical presentation and prior history patient with on revised cardiac risk index has 0.9% low risk for MD or V-fib/cleared for operative intervention
-Reviewed this weeks preoperative testing for cataract surgery EKG which was
�within normal limits
-Repeat EKG here
-Consult with [facility] orthopedics for presumptive OR intervention tomorrow
-Had retrograde nail inserted for fixation on August 20 in left leg immobilizer/activity as per orthopedics
-DVT prophylaxis as per orthopedics with aspirin 325 mg daily
Essential hypertension by history
-Continue present management with ARB and hydrochlorothiazide p
-Continue amlodipine/valsartan
Hyponatremia
-Review of medical records shows in a chronic basis
-Unclear etiology
-Patient is diabetic and after correction of sodium based on blood sugar today's sodium of 131
-No contraindication for operative intervention later today
-Fractional excretion of sodium is less than 1%/so we will continue cautious hydration
-Sodium. With correction for hyperglycemia 132
-Asymptomatic and would not address further unless becomes symptomatic then consider reduction or exclusion of hydrochlorothiazide/also given with her history of parathyroidism
Asthma history/no signs of exacerbation
-Continue Symbicort
-As needed albuterol
History of hyperparathyroidism
-Prior history of elevated parathyroid hormone and hypercalcemia
-Follows with endocrinology no active treatment presently
Gastroesophageal reflux disease
-Continue on PPI
Type 2 diabetes mellitus
-Hold metformin perioperatively will be restarted postop
-Sliding scale coverage /check glycosylated hemoglobin
Morbid obesity
-Impacts all aspects of care
Anticipated Discharge: 24 - 48 hours
Subjective/Interval History
-
Date of Service: August 22, 2023
Patient seems to be getting some adequate pain relief she is worried about the way that her left ankle is turned in/we discussed the possibility that she could have sprained it without an actual fracture in the fall and asked her to refer this to
orthopedics when they see her as she may need to be splinted there also.
Objective Data
-
Labs:
Laboratory Results
08/22/23
05:54
WBC 12.7 H
Hgb 9.6 L
Hct 28.1 L
Plt Count 237
Sodium 129 L
Potassium 3.6
Chloride 93 L
Carbon Dioxide 30
BUN 13
Creatinine 0.4 L
Glucose 156 H
Calcium 9.6
Vital Signs:
Vital Signs
Temp Pulse Resp BP Pulse Ox
98.2 F 79 20 146/51 95
08/21/23 23:00 08/21/23 23:00 08/21/23 23:00 08/21/23 23:00 08/21/23 23:00
I&O
08/21/23 08/22/23 08/23/23
06:59 06:59 06:59
Intake Total 1570 / 1570 1240 / 1240
Output Total 2750 / 2750 1999
Balance -1180 / -1180 -760 / -760
Review of Systems
-
History Source: Patient
Constitutional: Reports Fatigue and Weakness
Respiratory: Reports No Symptoms
Cardiac: Reports No Symptoms
Abdomen/GI: Reports Constipated
Physical Exam
-
General: Morbidly Obese
HEENT: Normocephalic
Respiratory: Clear to Auscultation
Cardiac: Regular Rhythm
GI: Soft and Nontender
Musculoskeletal: Edema, Right Lower Extrem and Edema, Left Lower Extrem (Left leg in immobilizer left foot and ankle slightly inward rotation with tenderness to flexion and extension)
Psych: Calm
Data Reviewed
-
Total Time Spent with Patient (in minutes): 56
Labs: Labs Reviewed by me (Sodium 129 corrected to 131 for blood sugar/hemoglobin stable 9.6 white count 12.7)
--- NOTE | 2023-08-22 07:56 | W.PN.ORTHO ---
Today's Communication / Plan
-
PT/OT
Knee Immobilizer at all time
strict NWB left leg
ASA/mechanical devices DVT prophy
SNF
Assessment
.
Distal Motor Intact: Yes
Dressing:
Clean, dry and intact.
Plan
.
Surgery / Date: Retrograde IM nail L distal femur 08/20/23 Ritting
DVT Prophylaxis: Aspirin
Activity:
Out of bed.
PT/OT
Discharge Plan: SNF
Subjective
.
.:
Patient resting comfortably.
Vital Signs and Labs
.
Vital Signs and Labs:
Lab Results
08/22/23 05:54
08/22/23 05:54
Temp Pulse Resp BP Pulse Ox
98.2 F 79 20 146/51 95
08/21/23 23:00 08/21/23 23:00 08/21/23 23:00 08/21/23 23:00 08/21/23 23:00
PT 14.0 Sec (11.4-14.6) 08/19/23 14:59
INR 1.07 08/19/23 14:59
[2023-08-22] MEDS: SYMBICORT 160/4.5 MCG INHALER 2 PUFF INH ×2 (07:59→21:05)
[2023-08-22 08:11] LABS: Glucose - Point of Care 157 mg/dl (70-99)
[2023-08-22] MEDS: NOVOLOG FLEXPEN-LOW RESISTANCE 1 UNITS SC ×2 (09:08→18:36)
[2023-08-22] MEDS: ORETIC 12.5 MG PO ×2 (09:09→20:37)
[2023-08-22] MEDS: COLACE 100 MG PO ×2 (09:09→20:30)
[2023-08-22] MEDS: NEURONTIN 200 MG PO ×3 (09:09→22:16)
[2023-08-22] MEDS: VITAMIN E 400 UNITS PO (09:09)
[2023-08-22] MEDS: SENOKOT 17.1999999999999993 MG PO ×2 (09:09→20:32)
[2023-08-22] MEDS: DIOVAN 160 MG PO ×2 (09:10→20:36)
[2023-08-22] MEDS: PROTONIX 40 MG PO (09:12)
[2023-08-22] MEDS: GLUCOPHAGE 500 MG PO ×2 (09:12→18:37)
[2023-08-22] MEDS: VITAMIN D3 (cholecalciferol) 50 MCG PO (09:12)
[2023-08-22] MEDS: TENORMIN PO (09:12)
[2023-08-22] MEDS: XANAX 0.25 MG PO ×2 (09:13→20:37)
[2023-08-22] MEDS: CLARITIN PO (09:13)
[2023-08-22] MEDS: ASPIRIN 325 MG PO (09:13)
[2023-08-22] MEDS: DESENEX/MITRAZOL/ZEASORB TOPICAL ×2 (09:16→20:19)
[2023-08-22] MEDS: NORVASC PO (09:26)
[2023-08-22 12:46] LABS: Glucose - Point of Care 201 mg/dl (70-99)
[2023-08-22] MEDS: NOVOLOG FLEXPEN-LOW RESISTANCE 2 UNITS SC (12:51)
[2023-08-22] MEDS: TYLENOL 650 MG PO ×2 (12:52→20:32)
[2023-08-22 13:03] VITALS: BP 136/54; PULSE 86; O2SAT 93
[2023-08-22 16:30] VITALS: BP 152/52
[2023-08-22 17:01] LABS: Glucose - Point of Care 172 mg/dl (70-99)
--- NOTE | 2023-08-22 17:03 | VATNOTE ---
During routine assessment of IV, it was noted that pt didn't have an IV. Per pt 'I think I pulled it out this morning.' Spoke with JUAN Wong, no needs for IV. Will call if need arises.
[2023-08-22] MEDS: ROXICODONE 5 MG PO (20:31)
[2023-08-22] MEDS: TENORMIN 12.5 MG PO (20:33)
[2023-08-22] MEDS: NORVASC 5 MG PO (20:36)
[2023-08-22 21:42] LABS: Glucose - Point of Care 202 mg/dl (70-99)
[2023-08-22] MEDS: CLARITIN 10 MG PO (22:16)
[2023-08-22] MEDS: SINGULAIR 10 MG PO (22:18)
[2023-08-22 23:15] VITALS: BP 114/54
[2023-08-23 06:06] LABS: Hematocrit 30.4 % (37.0-47.0); Hemoglobin 10.1 g/dL (12.0-16.0); Mean Corp Hgb Conc. 33.2 g/dL (33.0-37.0); Mean Corpuscular Volume 87.4 fL (81.0-99.0); Mean Platelet Volume 9.5 fL (7.4-10.4); Platelet Count 259 10^3/uL (130-400); Red Blood Cell Count 3.48 10^6/uL (4.20-5.40); Red Cell Dist. Width 14.1 % (11.5-14.5); White Blood Cell Count 10.1 10^3/uL (4.8-10.8)
[2023-08-23] MEDS: ROXICODONE 5 MG PO (06:31)
[2023-08-23 06:39] LABS: Blood Urea Nitrogen 10 mg/dl (7-17); Calcium 9.5 mg/dl (8.4-10.2); Carbon Dioxide 34 mmol/L (22-30); Chloride 91 mmol/L (98-107); Estimated Creatinine Clearance 98 ml/min; Glucose 156 mg/dl (70-99); Potassium 3.7 mmol/L (3.5-5.1); Sodium 133 mmol/L (135-145); eGFR > 60.00
[2023-08-23] MEDS: SYMBICORT 160/4.5 MCG INHALER 2 PUFF INH (07:33)
[2023-08-23 08:05] LABS: Glucose - Point of Care 161 mg/dl (70-99)
[2023-08-23 08:10] VITALS: BP 151/58
--- NOTE | 2023-08-23 09:10 | W.PN.HOSP.TC ---
Today's Communication/Plan
-
Discharge to rehab today
Assessment / Plan
Assessment / Plan
7
Impression/Plan
-
IMPRESSION:
72-year-old female with a known medical history that includes type type 2 diabetes mellitus with history of neuropathy along with hypertension and asthma.� Presents to the ED after EMS personnel called to a local [facility] pharmacy where the patient had
fallen in the entrance way against some carts stating that she accidentally fell she did not have any dizziness chest pain shortness of breath leading to the event she was unable to obtain upright status afterwards due to significant pain and is now
found to have a distal left femur fracture necessitating admission for operative intervention.� Other pertinent medical history she has more recently been also been followed by the endocrinology service for an elevated parathyroid hormone level that
was documented last year after initially noted to have hypercalcemia she is presently not being adequately treated for that.� She also has a history of hyponatremia her present laboratory profiling is still pending.
Distal left femur fracture with displacement
-Appreciate orthopedic surgery input, status post ORIF on August [address] Bell
-Nonweightbearing left lower extremity, knee immobilizer as per all time, pain control, PT/OT
-DVT prophylaxis as per orthopedics with aspirin 325 mg daily for 4 weeks through 09/17/2023
-Medically stable for discharge to short-term rehab, jayne can be removed in 2 weeks, follow-up with orthopedic surgery in 4 weeks for x-ray
Essential hypertension by history
-Continue present management with ARB and hydrochlorothiazide/amlodipine/valsartan
Hyponatremia
-Review of medical records shows in a chronic basis
-Fractional excretion of sodium is less than 1%/so we will continue cautious hydration
-Sodium 133 on day of discharge, continue fluid restriction
-Asymptomatic and would not address further unless becomes symptomatic then consider reduction or exclusion of hydrochlorothiazide/also given with her history of parathyroidism
Asthma history/no signs of exacerbation
-Continue Symbicort
-As needed albuterol
History of hyperparathyroidism
-Prior history of elevated parathyroid hormone and hypercalcemia
-Follows with endocrinology no active treatment presently, continue hydrochlorothiazide
Gastroesophageal reflux disease
-Continue on PPI
Type 2 diabetes mellitus
-Sliding scale coverage /glycosylated hemoglobin 7.6
Morbid obesity
-Impacts all aspects of care
DVT prophylaxis�aspirin as per orthopedic surgery
Full code
Physical Exam
General: Obese, no acute distress
HEENT: Normocephalic, Atraumatic, EOMI, MMM
Respiratory: Clear to Auscultation bilaterally
Cardiac: Normal S1/S2, Regular Rate and Rhythm
GI: Soft, Nontender, Nondistended, Normal Bowel Sounds
Extremities: No Clubbing, Cyanosis, or Edema
Neuro: Nonfocal/Grossly Intact
Psych: Calm, Cooperative
Derm: No Visible lesions
Anticipated Discharge: Today
Subjective/Interval History
-
Date of Service: August 23, 2023
Patient denies shortness of breath. No nausea, no vomiting. She is waiting for her pain medication.
Objective Data
-
Labs:
Laboratory Results
08/23/23
05:10
WBC 10.1
Hgb 10.1 L
Hct 30.4 L
Plt Count 259
Sodium 133 L
Potassium 3.7
Chloride 91 L
Carbon Dioxide 34 H
BUN 10
Creatinine 0.5 L
Glucose 156 H
Calcium 9.5
Vital Signs:
Vital Signs
Temp Pulse Resp BP Pulse Ox
98.7 F 83 18 151/58 93
08/23/23 08:10 08/23/23 08:10 08/23/23 08:10 08/23/23 08:10 08/23/23 08:10
I&O
08/22/23 08/23/23 08/24/23
06:59 06:59 06:59
Intake Total 1240 / 1240 1580 / 1580
Output Total 1999 1750 / 1750
Balance -760 / -760 -170 / -170
[2023-08-23] MEDS: DESENEX/MITRAZOL/ZEASORB TOPICAL ×2 (09:12→20:12)
[2023-08-23] MEDS: NOVOLOG FLEXPEN-LOW RESISTANCE 1 UNITS SC (09:13)
[2023-08-23] MEDS: NEURONTIN 200 MG PO ×3 (09:14→20:05)
[2023-08-23] MEDS: VITAMIN E 400 UNITS PO (09:15)
[2023-08-23] MEDS: XANAX 0.25 MG PO ×2 (09:15→20:04)
[2023-08-23] MEDS: COLACE 100 MG PO ×2 (09:17→20:06)
[2023-08-23] MEDS: ASPIRIN 325 MG PO (09:17)
[2023-08-23] MEDS: TENORMIN 12.5 MG PO ×2 (09:17→20:05)
[2023-08-23] MEDS: DIOVAN 160 MG PO ×2 (09:18→20:06)
[2023-08-23] MEDS: PROTONIX 40 MG PO (09:18)
[2023-08-23] MEDS: GLUCOPHAGE 500 MG PO ×2 (09:19→17:06)
[2023-08-23] MEDS: SENOKOT 17.1999999999999993 MG PO ×2 (09:19→20:06)
[2023-08-23] MEDS: VITAMIN D3 (cholecalciferol) 50 MCG PO (09:19)
[2023-08-23] MEDS: ORETIC 12.5 MG PO ×2 (09:19→20:06)
[2023-08-23] MEDS: NORVASC 5 MG PO ×2 (09:20→20:05)
[2023-08-23] MEDS: TYLENOL 650 MG PO ×2 (09:23→15:44)
[2023-08-23] MEDS: ROXICODONE 10 MG PO ×2 (10:40→17:25)
--- NOTE | 2023-08-23 11:12 | CM ---
Addendum entered by Kat Robbins RN 08/23/23 11:51:
Plan: Discharge to [facility] today. Covid test needed prior to discharge. TT to attending requesting Covid screening.
Call report to:
Fax report to:
Medical necessity and transport form on chart.
Addendum entered by Kat Robbins RN 08/23/23 11:33:
Auth obtained for [facility] 08/23-08/27; # [id number]
Ambulance Auth # [id number]
Original Note:
Reviewed the chart notes and spoke with the patient at the bedside. IMM signed and placed on the chart. The patient has been accepted to [facility].
[facility] NPI# [id number]
Dr. York NPI# [id number]
Precert required.
[2023-08-23 11:58] LABS: Glucose - Point of Care 209 mg/dl (70-99)
--- NOTE | 2023-08-23 12:34 | W.DCSUMMARY ---
Discharge Summary
Discharge Data
Date of Admission: 08/19/23
Date of Discharge: 08/23/23
-
Pending Results: No
Hospital Course
Discharge diagnoses:
Distal left femur fracture with displacement status post surgery
Essential hypertension
Hyponatremia
Type 2 diabetes
Morbid obesity
Gastroesophageal reflux disease
History of hyperparathyroidism
History of asthma
Consults: Orthopedic surgery
Procedures:
08/20/2023 Left distal femur retrograde nail by Dr. Moe Bell
Hospital course:
72-year-old female with a past medical history of type 2 diabetes, hypertension, and hyperparathyroidism was admitted for left distal femur fracture. Patient was seen in conjunction with orthopedic surgery, and underwent left distal femur
retrograde nail placement by Dr. Bell. Orthopedic surgery recommends nonweightbearing of the left lower extremity, and knee immobilizer at all times.
Patient received pain control, laxatives, PT/OT.
Her hospital course was complicated by hyponatremia. Her sodium dipped as low as 126. Suspect this is ADH mediated secondary to pain. She was treated with a fluid restriction, and her sodium improved to 133 upon discharge. She is on
hydrochlorothiazide for hypertension and hyperparathyroidism/hypercalcemia. Therefore, her hydrochlorothiazide was continued.
All of her other medical conditions were stable, and she was continued on her home medications.
She is medically stable for discharge. She needs to continue aspirin 325 mg daily through 09/17/2023 for DVT prophylaxis. She needs to follow-up with orthopedic surgery in the office in 4 weeks. She also needs to follow-up with her primary care
doctor 1 week after she leaves rehab.
Disposition: Short-term rehab
Discharge planning: Required 37 minutes
Discharge Plan
-
Patient Disposition: Long-Term/SNF
Discharge Diagnosis/Procedures: Left femur fracture status post surgery on 08/20/2023, obesity, hyponatremia, hyperparathyroidism on hydrochlorothiazide
Condition: Fair
Diet: Low Fat, Low Cholesterol and Restrict fluids to 64 oz
Activity: Do not bear weight L leg
Additional Activity: Wear knee immobilizer at all times, non-weightbearing left lower extremity
Activity Restrictions/Additional Instructions:
Can remove jayne on 09/02/2023.
Follow-up with orthopedic surgery in the office on 09/17/2023, call for an appointment.
Take aspirin 325 mg daily to prevent blood clots through 09/17/2023.
Follow-up with your primary care doctor in 1 week.
Referrals:
Davonte Wiggins, [Family Provider] - in one week
Moe Bell MD [Active] - 09/17/23 (outpatient follow-up 2 weeks from DOS; please call [phone] to schedule)
Prescriptions:
New
aspirin 325 mg Tablet
325 mg PO DAILY Qty: 25 0RF
miconazole nitrate [Miconazorb AF] 2 % Powder
1 applic topical BID Qty: 85 0RF
sennosides [Senna Lax] 8.6 mg Tablet
17.2 mg PO BID Qty: 120 0RF
polyethylene glycol 3350 [HealthyLax] 17 gram Powder In Packet
17 g PO BID Qty: 0 0RF
oxycodone 10 mg Tablet
10 mg PO Q4HPRN PRN (Reason: moderate pain) Qty: 14 0RF
Continued
metformin 500 MG tablet
500 mg PO BID
atenolol 25 MG tablet
12.5 mg PO BID
amlodipine 5 MG tablet
5 mg PO BID
acetaminophen 650 MG tablet extended release
650 mg PO Q8HPRN PRN (Reason: pain)
meclizine 25 MG tablet
25 mg PO TID PRN (Reason: Vertigo)
triamcinolone acetonide [Nasacort AQ] 16.5 GM aerosol,spray
16.5 gm NS DAILYPRN PRN (Reason: congestion)
omeprazole 20 MG capsule,delayed release(DR/EC)
20 mg PO DAILY
gabapentin 100 MG capsule
200 mg PO TID
albuterol sulfate 1 PUFF HFA aerosol inhaler
2 puff inhalation R Q4HPRN PRN (Reason: SOB)
dicyclomine 10 MG capsule
10 mg PO TID PRN (Reason: stomach pains)
vitamin E 400 UNIT capsule
400 unit PO DAILY
budesonide-formoterol [Symbicort] 1 PUFF HFA aerosol inhaler
2 puff inhalation R BID
cholecalciferol (vitamin D3) 2,000 UNIT tablet
2,000 unit PO DAILY
omega 4-hjp-ukx-fish oil [Fish Oil] 1 EACH capsule
1 ea PO DAILY
Fexofenadine Hcl 180 MG Tablet
180 mg PO DAILY
Montelukast Sodium 10 MG Tablet
10 mg PO HS
valsartan-hydrochlorothiazide 160-12.5 mg tablet
1 tab PO BID
alprazolam 0.5 MG tablet
0.5 mg PO TID Qty: 6 0RF
Discharge Orders:
Discharge Patient (As Directed); Ordered 08/23/23
Ordered By: Gagandeep Simon
[2023-08-23] MEDS: NOVOLOG FLEXPEN-LOW RESISTANCE 2 UNITS SC ×2 (12:36→17:20)
[2023-08-23] MEDS: MIRALAX 17 GRAMS PO (12:36)
[2023-08-23 13:01] LABS: COVID-19 Antigen Negative (Negative)
[2023-08-23 15:45] VITALS: BP 152/56
[2023-08-23 17:19] LABS: Glucose - Point of Care 220 mg/dl (70-99)
[2023-08-23] MEDS: CLARITIN 10 MG PO (20:06)
[2023-08-23] MEDS: SYMBICORT 160/4.5 MCG INHALER INH (20:16)
== END 2023-08-23 20:30 | DRG 481 ==
LOC: 2 SOUTH 16:09
PROVIDERS: Physician Assistant Medical; Physician Assistant Surgical; ADMITTING PHYSICIAN Internal Medicine; ATTENDING PHYSICIAN Family Medicine; CONSULT PHYSICIAN Orthopaedic Surgery Hand Surgery; EMERGENCY PHYSICIAN Emergency Medicine; FAMILY PHYSICIAN Family Medicine
PROC: 0QHC06Z Insertion of Intramedullary Internal Fixation Device into Left Lower Femur, Open Approach (ICD-10-PCS; 2023-08-20)
DX: S72.492A Other fracture of lower end of left femur, initial encounter for closed fracture (principal); E87.1 Hypo-osmolality and hyponatremia; Z68.41 Body mass index [BMI] 40.0-44.9, adult; E11.41 Type 2 diabetes mellitus with diabetic mononeuropathy; I10 Essential (primary) hypertension; J45.909 Unspecified asthma, uncomplicated; W19.XXXA Unspecified fall, initial encounter; E21.3 Hyperparathyroidism, unspecified; E66.01 Morbid (severe) obesity due to excess calories; K21.9 Gastro-esophageal reflux disease without esophagitis; E78.00 Pure hypercholesterolemia, unspecified; Z11.52 Encounter for screening for COVID-19
CPT/HCPCS: 73551; 73552; 73564; 73590; 73610; 73700; 76000; 80048; 82570; 82962; 83036; 83935; 84300; 85025; 85027; 85610; 85730; 86850; 86900; 86901; 87811; 94640; 97110; 97163; 97167; 97530; 97535; 99285; C1713; C1769